=== PATIENT | female | born 2000 | race Two or more races ===

== ENCOUNTER 2023-08-25 23:53 | Emergency (ER) | payer MEDICAID, OTHER ==
[~2023-08-25] VITALS: Ht 165.1 cm; Wt 65.8 kg
[2023-08-26 00:04] VITALS: BP 110/68; PULSE 126; RESP 18; O2SAT 100
== END 2023-08-26 01:02 | disposition left against medical advice (07) ==
LOC: EDBD 23:53 → ER 23:53
DX: Z04.1 Encounter for examination and observation following transport accident (principal); V49.9XXA Car occupant (driver) (passenger) injured in unspecified traffic accident, initial encounter; Y93.89 Activity, other specified; Y92.89 Other specified places as the place of occurrence of the external cause; Y99.8 Other external cause status